=== PATIENT | female | born 1970 | race Caucasian/White ===

== ENCOUNTER 2019-12-03 15:30 | Outpatient (RCR) | payer MEDICARE, MEDICAID, SELFPAY ==
[2019-12-03 15:49] LABS: Basophils Absolute Auto 0.1 K/mm3 (0.0-0.1); Basophils Percent Auto 0.8 % (0.2-1.2); Eosinophils Absolute Auto 0.3 K/mm3 (0-0.3); Hematocrit 43.9 % (37.0-47.0); Hemoglobin 14.3 g/dL (12.0-15.0); Immature Granulocyte Absolute 0.03 K/mm3 (0.00-0.031); Immature Granulocyte Percent A 0.3 % (0-0.5); Lymphocytes Absolute Auto 3.02 K/mm3 (0.9-3.2); Lymphocytes Percent Auto 34.9 % (18.3-44.2); Mean Corpuscular HGB Conc 32.6 g/dl (32-36); Mean Corpuscular Hemoglobin 27.3 pg (26-34); Mean Corpuscular Volume 83.9 fl (80-100); Mean Platelet Volume 10.9 fl (7.4-10.4); Monocytes Absolute Auto 0.8 K/mm3 (0.1-0.6); Neutrophils Absolute Auto 4.5 K/mm3 (1.3-6.7); Platelet Count Result 278 k/mm3 (150-375); Red Blood Count 5.23 M/mm3 (4.2-5.4); Red Cell Distribution Width 14.6 % (11.5-14.5); White Blood Count 8.7 K/mm3 (4.5-10.0)
[2019-12-03 16:49] LABS: Alanine Aminotransferase 30 U/L (4-35); Albumin Level 4.4 g/dL (3.5-5.1); Alkaline Phosphatase 142 U/L (38-126); Aspartate Amino Transferase 35 U/L (14-36); Bilirubin,Total 0.4 mg/dL (0.2-1.3); Blood Urea Nitrogen 13 mg/dL (7-17); Calcium 10.1 mg/dL (8.4-10.2); Carbon Dioxide 29 mmol/L (22-30); Chloride 97 mmol/L (98-107); Cholesterol 163 mg/dL (0-200); Estimated Glomerular Filt Rate > 60; Glucose 96 mg/dL (65-105); HDL Direct 53 mg/dL; Hemoglobin A1C 6.3 % (<5.7); Potassium 4.3 mmol/L (3.4-5.0); Sodium 140 mmol/L (137-145); Triglycerides 156 mg/dL (<150)
[2019-12-03 17:00] LABS: LDL Cholesterol Direct 76 mg/dL
[2019-12-03 17:01] LABS: Add Urine Microscopic? YES; Appearance Urine Clear (Clear); Bacteria Urine Trace /hpf; Bilirubin Urine Negative (Negative); Blood Urine 1+ (Negative); Color Urine Straw (Yellow); Glucose Urine UA Negative (Negative); Ketones Urine Negative (Negative); Leukocyte Esterase Ur Negative LEU/UL (Negative); Nitrate Urine Negative (Negative); Protein Urine Negative (Negative); RBC Urine 0-2 /hpf (0-2); Squamous Epithelial Cell Urine Many /hpf (Few); Urobilinogen Urine Negative mg/dL (<2.0); WBC Urine 0-3 /hpf
[2019-12-03 17:03] LABS: Creatinine Urine 18.3 mg/dL; Specific Grav Ur 1.004 (1.001-1.035)
[2019-12-03 17:40] LABS: Microalbumin Urine Random < 6.0 mg/L (0-16.7)
== END 2020-03-02 23:59 | disposition home or self-care (01) ==
LOC: ANHLAB 15:30
PROVIDERS: PCP Internal Medicine; Referring Provider Nurse Practitioner; Visit Provider Internal Medicine
DX: E11.9 Type 2 diabetes mellitus without complications (principal); Z79.899 Other long term (current) drug therapy
CPT/HCPCS: 36415; 80053; 80061; 81001; 82043; 83036; 85025

== ENCOUNTER 2020-07-06 15:14 | Outpatient (CLI) | payer MEDICARE, MEDICAID, SELFPAY ==
[2020-07-06 15:47] LABS: Hematocrit 42.5 % (37.0-47.0); Hemoglobin 13.6 g/dL (12.0-15.0); Mean Corpuscular Hemoglobin 27.6 pg (26-34); Mean Corpuscular Volume 86.4 fl (80-100); Mean Platelet Volume 10.7 fl (7.4-10.4); Platelet Count Result 256 k/mm3 (150-375); Red Blood Count 4.92 M/mm3 (4.2-5.4); Red Cell Distribution Width 14.5 % (11.5-14.5)
[2020-07-06 16:52] LABS: Add Urine Microscopic? YES; Appearance Urine Clear (Clear); Bilirubin Urine Negative (Negative); Blood Urine 1+ (Negative); Color Urine Yellow (Yellow); Glucose Urine UA Negative (Negative); Ketones Urine Negative (Negative); Leukocyte Esterase Ur Negative LEU/UL (Negative); Mucus Urine Rare /lpf; Nitrate Urine Negative (Negative); Protein Urine Negative (Negative); Specific Grav Ur 1.013 (1.001-1.035); Squamous Epithelial Cell Urine Many /hpf (Few); Urobilinogen Urine Negative mg/dL (<2.0); WBC Urine 0-3 /hpf
[2020-07-06 16:52] LABS: Erythrocyte Sedimentation Rate 60 mm/hr (0-20)
[2020-07-06 17:03] LABS: Hemoglobin A1C 5.9 % (<5.7)
[2020-07-06 17:40] LABS: Alanine Aminotransferase 34 U/L (4-35); Albumin Level 4.1 g/dL (3.5-5.1); Alkaline Phosphatase 114 U/L (38-126); Anion Gap 5 mmol/L (8-16); Aspartate Amino Transferase 32 U/L (14-36); Bilirubin,Total 0.4 mg/dL (0.2-1.3); Blood Urea Nitrogen 13 mg/dL (7-17); CRP 0.9 mg/dL (<1.0); Calcium 9.4 mg/dL (8.4-10.2); Carbon Dioxide 29 mmol/L (22-30); Chloride 104 mmol/L (98-107); Estimated Glomerular Filt Rate > 60; Glucose 114 mg/dL (65-105); Potassium 4.4 mmol/L (3.4-5.0); Sodium 138 mmol/L (137-145)
== END 2020-07-06 15:15 | disposition home or self-care (01) ==
PROVIDERS: Nurse Practitioner; PCP Internal Medicine; Visit Provider Internal Medicine
DX: M19.90 Unspecified osteoarthritis, unspecified site (principal); R76.8 Other specified abnormal immunological findings in serum; Z79.899 Other long term (current) drug therapy; E11.9 Type 2 diabetes mellitus without complications
CPT/HCPCS: 36415; 80053; 81001; 83036; 85027; 85652; 86140

== ENCOUNTER 2020-09-11 19:25 | Emergency (ER) | payer MEDICARE, MEDICAID, SELFPAY ==
--- NOTE | ~2020-09-11 | CT_ITS ---
EXAMINATION: CT abdomen pelvis wo con DATE: 09/11/2020 20:03 INDICATION: Right flank pain. TECHNIQUE: Computed tomography (CT) of the abdomen and pelvis was performed without intravenous contr ast. Automated exposure control and iterative reconstruction technique were employed. The dose-length product was 1408.27 mGy-cm. COMPARISON: CT abdomen and pelvis 09/18/2016 FINDINGS: The visualized portions of the lung bases demonstrate mild atelectasis. There is mosaic att enuation in the lungs, likely small airways disease. No pleural effusion. The heart size is normal. N o pericardial effusion. There is diffuse hepatic steatosis. The gallbladder, spleen, pancreas, adrena l glands, and kidneys are normal. No urolithiasis. There are no dilated loops of bowel. The appendix is normal. There are no pathologically enlarged lymph nodes. There is no free intraperitoneal fluid. There is moderate lumbar spondylosis. IMPRESSION: 1. Diffuse hepatic steatosis. Reviewed, dictated and finalized at location A. WELLNESS
[2020-09-11 19:30] VITALS: BP 143/108; PULSE 102; RESP 14; TEMP 36.3; O2SAT 97
[2020-09-11] MEDS: ONDANSETRON INJ 4 MG/2 ML VIAL IV PUSH (20:15)
[2020-09-11] MEDS: SODIUM CHLORIDE 0.9% IV 1,000 ML 999 ML IV CONT (20:15)
[2020-09-11] MEDS: KETOROLAC 15 MG/ML VIAL (*BKC) IV PUSH (20:18)
[2020-09-11 20:25] LABS: Basophils Absolute Auto 0.1 K/mm3 (0.0-0.1); Basophils Percent Auto 0.7 % (0.2-1.2); Eosinophils Absolute Auto 0.2 K/mm3 (0-0.3); Hematocrit 43.7 % (37.0-47.0); Immature Granulocyte Absolute 0.06 K/mm3 (0.00-0.031); Immature Granulocyte Percent A 0.6 % (0-0.5); Lymphocytes Absolute Auto 2.97 K/mm3 (0.9-3.2); Lymphocytes Percent Auto 30.7 % (18.3-44.2); Mean Corpuscular Hemoglobin 28.5 pg (26-34); Mean Corpuscular Volume 88.8 fl (80-100); Mean Platelet Volume 11.1 fl (7.4-10.4); Monocytes Absolute Auto 0.9 K/mm3 (0.1-0.6); Monocytes Percent Auto 9.3 % (2.6-8.5); Neutrophils Absolute Auto 5.5 K/mm3 (1.3-6.7); Neutrophils Percent Auto 56.7 % (45.5-73.1); Platelet Count Result 266 k/mm3 (150-375); Red Blood Count 4.92 M/mm3 (4.2-5.4); Red Cell Distribution Width 14.4 % (11.5-14.5); White Blood Count 9.7 K/mm3 (4.5-10.0)
--- NOTE | 2020-09-11 20:29 | ED.BACK ---
HPI - Back Pain/Injury General Chief Complaint: Back Pain/Injury Stated Complaint: right flank pain Time Seen by Provider: 09/11/20 19:38 History of Present Illness HPI Narrative: Patient is a 50-year-old female that presents emerge department with chief complaint of right-sided flank pain. Patient denies nausea vomiting diarrhea fever lower abdominal pain. Patient denies trauma. Patient reports symptoms are worse with inspiration and improved with rest Related Data Home Medications Medication Instructions Recorded Confirmed albuterol sulfate 90 mcg/actuation 2 puff INHALATION Q4-6H PRN gm 08/31/19 08/05/20 aerosol inhaler fluticasone furoate 100 1 inhalation INHALATION DAILY 08/31/19 08/05/20 mcg-vilanterol 25 mcg/dose inhalation powder hydroxyzine HCl 25 mg tablet 25 mg PO BID PRN 08/31/19 08/05/20 Allergies Allergy/AdvReac Type Severity Reaction Status Date / Time No Known Allergies Allergy Unknown Verified 09/11/20 19:47 Review of Systems Review of Systems: Narrative: CONSTITUTIONAL: Denies fever, chills, or sweats. EYES: Denies visual changes, redness, or discharge. ENT: Denies rhinorrhea, congestion, sore throat, or otalgia. CARDIOVASCULAR: Denies chest pain, palpitations, or edema. RESPIRATORY: Denies cough or dyspnea. GASTROINTESTINAL: Denies abdominal pain, nausea, vomiting, or diarrhea. GENITOURINARY: Denies dysuria or hematuria. SKIN: Denies rash or itching. MUSCULOSKELETAL: Denies back pain, joint pain, or myalgia. NEUROLOGIC: Denies headache, numbness, or weakness. PSYCHIATRIC: Denies anxiety or depression. A 10 system review of systems was completed on the patient and is negative except for what is stated in the HPI. Nursing and ancillary documentation was reviewed. [facility] Past Medical History Medical History (Updated 09/11/20 @ 22:23 by Jr Bird MD) Alcoholism ALEXANDREA positive (~2018) Anxiety Asthma Broken foot Top of left foot 2019 Chronic fatigue Constipation Depression Endometriosis Fainting spell Fainting/Falls Generalized osteoarthritis of multiple sites Heart disease Hyperlipidemia Kidney disease Liver disease Low BP Lung disease Migraine Type 2 diabetes mellitus Surgical History Surgical History H/O section 1989 H/O foot surgery Plates and screws in left foot 2018 H/O right heart catheterization 2013 H/O tympanostomy 2005 History of tonsillectomy Family History Family History Mother Family history of cardiovascular disease Heart disease Father Back problem Other Diabetes mellitus Hypertension Social History Social History Smoking packs per day: 1 Smoking cigarettes per day: 20.0 Smoking status: Current every day smoker Tobacco type: cigarettes Alcohol intake: never Substance use: never Gender identity (if verbalized by the patient): Female Exam Narrative: Exam Narrative: GENERAL: Well-appearing, well-nourished, and in no acute distress. HEAD: Normocephalic, atraumatic. EYES: PERRLA and EOMI. ENT: Nares clear, no rhinorrhea or epistaxis. Mucous membranes moist. NECK: Supple. CHEST: Clear to auscultation. No respiratory distress. HEART: Regular rate and rhythm. No murmur heard. Normal peripheral pulses. ABDOMEN: Soft, nontender, nondistended, normal active bowel sounds. EXTREMITIES: Normal range of motion. No edema. SKIN: Warm, dry, no rash. NEURO: No focal deficits. Alert and oriented x3. PSYCH: Normal mood and affect. Course Course Emergency Course: CT scan of the abdomen pelvis showed no evidence of acute intra-abdominal pathology. Vital Signs Vital signs: Vital Signs Temperature 36.3 C L 09/11/20 19:30 Pulse Rate 102 H 09/11/20 19:30 Respiratory Rate 14 09/11/20 19:30 Blood Pressu
[2020-09-11 20:36] LABS: Lipase 95 U/L (23-300)
[2020-09-11 20:37] LABS: Alanine Aminotransferase 34 U/L (4-35); Albumin Level 4.3 g/dL (3.5-5.1); Alkaline Phosphatase 124 U/L (38-126); Anion Gap 10 mmol/L (8-16); Aspartate Amino Transferase 36 U/L (14-36); Bilirubin,Total 0.3 mg/dL (0.2-1.3); Blood Urea Nitrogen 13 mg/dL (7-17); Calcium 9.3 mg/dL (8.4-10.2); Carbon Dioxide 31 mmol/L (22-30); Chloride 99 mmol/L (98-107); Estimated CRCL calculation 91 ml/min; Estimated Glomerular Filt Rate > 60; Glucose 99 mg/dL (65-105); Sodium 140 mmol/L (137-145)
--- NOTE | 2020-09-11 21:11 | PC.NURSE ---
asked pt for a second time to try to provide a urine sample. pt states she cannot at this time.
[2020-09-11 21:51] LABS: Add Urine Microscopic? YES; Appearance Urine Cloudy (Clear); Bacteria Urine Trace /hpf; Bilirubin Urine Negative (Negative); Blood Urine Negative (Negative); Color Urine Yellow (Yellow); Glucose Urine UA Negative (Negative); Ketones Urine Negative (Negative); Leukocyte Esterase Ur Negative LEU/UL (Negative); Mucus Urine Few /lpf; Nitrate Urine Negative (Negative); Protein Urine 1+ mg/dL (Negative); Specific Grav Ur 1.016 (1.001-1.035); Squamous Epithelial Cell Urine Many /hpf (Few); Urobilinogen Urine Negative mg/dL (<2.0); WBC Urine 0-3 /hpf
[2020-09-11] MEDS: HYDROcodone/acetaminophen (*CRX) 5-325 MG TABLET 2 TAB PO (22:01)
[2020-09-11 22:30] VITALS: BP 107/71; PULSE 75; RESP 17; O2SAT 97
== END 2020-09-11 22:37 | disposition home or self-care (01) ==
PROVIDERS: Emergency Provider Emergency Medicine; PCP Internal Medicine
DX: R10.9 Unspecified abdominal pain (principal); J45.909 Unspecified asthma, uncomplicated; N80.9 Endometriosis, unspecified; E11.9 Type 2 diabetes mellitus without complications; M19.90 Unspecified osteoarthritis, unspecified site; E78.5 Hyperlipidemia, unspecified; I51.9 Heart disease, unspecified; N28.9 Disorder of kidney and ureter, unspecified; K76.9 Liver disease, unspecified; F17.210 Nicotine dependence, cigarettes, uncomplicated; Z79.84 Long term (current) use of oral hypoglycemic drugs
CPT/HCPCS: 36415; 74176; 80053; 81001; 83690; 85025; 96361; 96374; 96375; 99284; A9270; J1885; J2405; J7030

== ENCOUNTER 2020-10-20 16:33 | Outpatient (CLI) | payer MEDICARE, SELFPAY ==
[2020-10-20 17:14] LABS: Hematocrit 44.4 % (37.0-47.0); Hemoglobin 14.6 g/dL (12.0-15.0); Mean Corpuscular HGB Conc 32.9 g/dl (32-36); Mean Corpuscular Hemoglobin 28.9 pg (26-34); Mean Corpuscular Volume 87.7 fl (80-100); Mean Platelet Volume 10.8 fl (7.4-10.4); Platelet Count Result 256 k/mm3 (150-375); Red Blood Count 5.06 M/mm3 (4.2-5.4); Red Cell Distribution Width 14.4 % (11.5-14.5); White Blood Count 9.9 K/mm3 (4.5-10.0)
[2020-10-20 17:18] LABS: Add Urine Microscopic? YES; Appearance Urine Clear (Clear); Bacteria Urine Trace /hpf; Bilirubin Urine Negative (Negative); Blood Urine 1+ (Negative); Color Urine Straw (Yellow); Glucose Urine UA Negative (Negative); Ketones Urine Negative (Negative); Leukocyte Esterase Ur Negative LEU/UL (Negative); Nitrate Urine Negative (Negative); Protein Urine Negative (Negative); RBC Urine 0-2 /hpf (0-2); Specific Grav Ur 1.005 (1.001-1.035); Squamous Epithelial Cell Urine Moderate /hpf (Few); Urobilinogen Urine Negative mg/dL (<2.0); WBC Urine 0-3 /hpf
[2020-10-20 17:30] LABS: Alanine Aminotransferase 33 U/L (4-35); Albumin Level 4.3 g/dL (3.5-5.1); Alkaline Phosphatase 112 U/L (38-126); Anion Gap 7 mmol/L (8-16); Aspartate Amino Transferase 35 U/L (14-36); Bilirubin,Total 0.4 mg/dL (0.2-1.3); Blood Urea Nitrogen 12 mg/dL (7-17); CRP 1.6 mg/dL (<1.0); Calcium 9.6 mg/dL (8.4-10.2); Carbon Dioxide 30 mmol/L (22-30); Chloride 102 mmol/L (98-107); Estimated Glomerular Filt Rate > 60; Glucose 103 mg/dL (65-105); Sodium 139 mmol/L (137-145)
[2020-10-20 17:46] LABS: Erythrocyte Sedimentation Rate 20 mm/hr (0-20)
== END 2020-10-20 16:34 | disposition home or self-care (01) ==
PROVIDERS: Internal Medicine; PCP Internal Medicine; Visit Provider Internal Medicine
DX: R76.8 Other specified abnormal immunological findings in serum (principal); M19.90 Unspecified osteoarthritis, unspecified site; E11.9 Type 2 diabetes mellitus without complications
CPT/HCPCS: 36415; 80053; 81001; 85027; 85652; 86140

== ENCOUNTER 2020-12-21 11:43 | Outpatient (CLI) | payer MEDICARE, SELFPAY ==
--- NOTE | ~2020-12-21 | XR_ITS ---
EXAMINATION: XR chest 2V DATE: 12/21/2020 12:14 INDICATION: Cough and shortness of breath TECHNIQUE: PA and lateral views of the chest are obtained. COMPARISON: 12/30/2013 FINDINGS: There are diffuse opacities throughout all lung zones, worse in the mid and lower lung zone s. There is no pleural effusion or pneumothorax. The cardiomediastinal silhouette is normal. There is mild thoracic spondylosis. IMPRESSION: 1. Diffuse lung disease, worst in the mid and lower lung zones, with an appearance typical of COVID 1 9 pneumonia. Differential also includes other atypical pneumonia and pulmonary edema. Reviewed, dictated and finalized at location A. ING CONTRACTOR IMPRESSION: 1. Diffuse lung disease, worst in the mid and lower lung zones, with an appeara nce typical of COVID 19 pneumonia. Differential also includes other atypical pn eumonia and pulmonary edema.
== END 2020-12-21 11:44 | disposition home or self-care (01) ==
PROVIDERS: PCP Internal Medicine; Visit Provider Clinical Nurse Specialist
DX: R05 Cough (principal); J98.4 Other disorders of lung
CPT/HCPCS: 71046

== ENCOUNTER → 2020-12-22 06:59 | Outpatient (CLI) | payer MEDICARE, SELFPAY ==
[2020-12-23 18:59] LABS: SARS-CoV-2 RNA PCR Negative
== END ==
PROVIDERS: PCP Internal Medicine; Visit Provider Clinical Nurse Specialist
DX: U07.1 COVID-19 (principal); J12.82 Pneumonia due to coronavirus disease 2019
CPT/HCPCS: C9803; U0003; U0005

== ENCOUNTER 2021-01-24 14:51 | Outpatient (CLI) | payer MEDICARE, MEDICAID, SELFPAY ==
[2021-01-24 16:34] LABS: Hemoglobin A1C 6.1 % (<5.7)
== END 2021-01-24 14:52 | disposition home or self-care (01) ==
LOC: ANHLAB 14:52
PROVIDERS: PCP Internal Medicine; Visit Provider Clinical Nurse Specialist
DX: E11.9 Type 2 diabetes mellitus without complications (principal)
CPT/HCPCS: 36415; 83036

== ENCOUNTER 2021-07-31 14:52 | Outpatient (CLI) | payer MEDICARE, SELFPAY ==
[2021-07-31 15:36] LABS: Hemoglobin A1C 6.5 % (<5.7)
[2021-07-31 15:39] LABS: Anion Gap 9 mmol/L (8-16); Blood Urea Nitrogen 15 mg/dL (7-17); Calcium 9.6 mg/dL (8.4-10.2); Carbon Dioxide 28 mmol/L (22-30); Chloride 103 mmol/L (98-107); Estimated Glomerular Filt Rate > 60; Glucose 136 mg/dL (65-110); Potassium 4.4 mmol/L (3.4-5.0); Sodium 140 mmol/L (137-145)
== END 2021-07-31 14:53 | disposition home or self-care (01) ==
LOC: ANHLAB 14:55
PROVIDERS: PCP Internal Medicine; Visit Provider Clinical Nurse Specialist
DX: E11.9 Type 2 diabetes mellitus without complications (principal)
CPT/HCPCS: 36415; 80048; 83036

== ENCOUNTER 2021-11-03 01:48 | Day surgery (SDC) | payer MEDICARE, SELFPAY ==
[2021-10-20 16:01] VITALS: BMI 56.0
--- NOTE | 2021-11-02 14:07 | WPDANESEPPF ---
Anes - Initial Pre Proc Eval Procedure: Operation Date: 11/03/21 11:00 Proposed Procedures p Screening Colonoscopy - Jay Moreno MD Date/Time: 11/02/21 14:07 Surgeon: Jay Moreno MD Pre Op Diagnosis: neoplasm screening Patient Data Age: 51 Gender: F Height: 1.52 m Weight: 130 kg Allergies Allergy/AdvReac Type Severity Reaction Status Date / Time No Known Allergies Allergy Unknown Verified 11/03/21 10:14 Home Medications Medication Instructions Recorded Confirmed Type albuterol sulfate 90 mcg/actuation 2 puff INHALATION Q4-6H PRN gm 08/31/19 10/20/21 History aerosol inhaler hydroxyzine HCl 25 mg tablet 25 mg PO BID PRN 08/31/19 10/20/21 History OneTouch Ultra Blue Test Strip #100 each NS 03/08/20 08/03/21 Rx famotidine 20 mg tablet 20 mg PO BID #360 tablet 11/14/20 10/20/21 Rx diclofenac sodium 75 mg 75 mg PO BID #180 tablet 07/21/21 10/20/21 Rx tablet,delayed release hydroxychloroquine 200 mg tablet See Rx Instructions .ROUTE 07/21/21 10/20/21 Rx .COMPLEX #180 tablet bupropion HCl 300 mg 24 hr tablet, 300 mg PO QAM #90 tablet 07/31/21 10/20/21 Rx extended release lovastatin 40 mg tablet 40 mg PO DAILY #90 tablet 08/02/21 10/20/21 Rx montelukast 10 mg tablet 10 mg PO DAILY #90 tablet 08/02/21 10/20/21 Rx amitriptyline 100 mg tablet 200 mg PO DAILY #180 tablet 08/30/21 10/20/21 Rx aspirin 81 mg PO DAILY 10/20/21 10/20/21 History mcqkdnjligd-fbucxqika-wptiesls 1 inh INHALATION DAILY 10/20/21 10/20/21 History [Trelegy Ellipta] linaclotide 290 mcg capsule 290 mcg PO DAILY #90 cap 10/26/21 Rx Patient hx anesthesia problems: none Family hx anesthesia problems: none Results Review: All pre-operative results and documents have been reviewed as part of the pre-operative evaluation. [facility] Past Medical History Medical History (Updated 08/04/21 @ 11:10 by SATURNINO Mcginnis) Acute foot pain Alcoholism ALEXANDREA positive (~2018) Anxiety Asthma Broken foot Top of left foot 2019 Chronic fatigue Constipation Depression Endometriosis Fainting spell Fainting/Falls Generalized osteoarthritis of multiple sites Heart disease Hyperlipidemia Kidney disease Liver disease Low BP Lung disease Migraine Type 2 diabetes mellitus Surgical History Surgical History (Reviewed 08/03/21 @ 14:24 by Abi Fairchild [facility]) H/O section 1989 H/O foot surgery Plates and screws in left foot 2018 H/O right heart catheterization 2013 H/O tympanostomy 2005 History of tonsillectomy Family History Family History (Reviewed 08/03/21 @ 14:24 by Abi Fairchild [facility]) Mother Family history of cardiovascular disease Heart disease Father Back problem Other Diabetes mellitus Hypertension Social History Social History (Reviewed 08/03/21 @ 14:24 by Abi Fairchild [facility]) Smoking packs per day: 1 Smoking cigarettes per day: 20.0 Years smoked: 30 Smoking pack-years: 30.00 Smoking status: Current every day smoker Tobacco type: cigarettes Alcohol intake: never Substance use: never Living arrangements: with family Gender identity (if verbalized by the patient): Female Spiritual care concerns: No Anes - Eval Final PreProcedure Day of Procedure 11/02/21 14:07 Patient weight: super morbidly obese Heart: regular rate and rhythm Lungs: clear to auscultation and normal air movement Airway: Mallampati scale class II Neurological: alert and oriented Last oral intake: >/= 8 hours ASA classification: III Emergent: no Anesthetic plan: proceed Anesthesia type and monitoring: general GIVS and standard monitoring Results Review: All pre-operative results and documents have been reviewed as part of the pre-operative evaluation. Informed Consent: The patient's anesthetic plan and its attendant risks and benefits were discussed with the patient/family/POA. Questions were solicited and answers provided to the satisfaction of th
[2021-11-03 10:15] VITALS: BP 139/91; PULSE 90; RESP 24; TEMP 35.9; O2SAT 94; BMI 56.0
[2021-11-03] MEDS: LACTATED RINGERS 1,000 ML 150 ML IV CONT (10:18)
--- NOTE | 2021-11-03 10:43 | PM.HPGS ---
History of Present Illness History of Present Illness Consent: Risks, benefits, and alternatives have been discussed and questions answered. Patient agrees to proceed with procedure. Chief complaint: neoplasm screening Narrative: Mer Davila is a 51 year old female here for first screening colonoscopy Review of Systems Constitutional: Constitutional: Denies headache(s) and Denies weakness Eyes: Eyes: Denies blurry vision ENT: Reports Normal hearing present, Denies headache(s) and Denies neck pain Cardiovascular: Cardiovascular: Denies chest pain and Denies dyspnea Respiratory: Respiratory: Denies dyspnea Gastrointestinal: Gastrointestinal: Reports no additional gastrointestinal complaints Genitourinary: Genitourinary: Denies dysuria Musculoskeletal: Musculoskeletal: Denies neck pain Integumentary/Breasts: Skin/Breast: Denies dry skin Neurologic: Reports Normal hearing present, Denies headache(s) and Denies weakness Psychiatric: Psychiatric: Denies anxiety Endocrine: Endocrine: Denies change in body appearance Hematologic/Lymphatic: Hematologic/Lymphatic: Denies easy bleeding Allergic/Immunologic: Allergic/Immunologic: Denies urticaria PMF Past Medical History Medical History (Updated 08/04/21 @ 11:10 by ALEXANDER Mcginnis-C) Acute foot pain Alcoholism ALEXANDREA positive (~2018) Anxiety Asthma Broken foot Top of left foot 2019 Chronic fatigue Constipation Depression Endometriosis Fainting spell Fainting/Falls Generalized osteoarthritis of multiple sites Heart disease Hyperlipidemia Kidney disease Liver disease Low BP Lung disease Migraine Type 2 diabetes mellitus Surgical History Surgical History H/O section 1989 H/O foot surgery Plates and screws in left foot 2018 H/O right heart catheterization 2013 H/O tympanostomy 2005 History of tonsillectomy Family History Family History Mother Family history of cardiovascular disease Heart disease Father Back problem Other Diabetes mellitus Hypertension Social History Social History Smoking packs per day: 1 Smoking cigarettes per day: 20.0 Years smoked: 30 Smoking pack-years: 30.00 Smoking status: Current every day smoker Tobacco type: cigarettes Alcohol intake: never Substance use: never Living arrangements: with family Gender identity (if verbalized by the patient): Female Spiritual care concerns: No Meds Home Medications and Allergies Home Medications Medication Instructions Recorded Confirmed Type albuterol sulfate 90 mcg/actuation 2 puff INHALATION Q4-6H PRN gm 08/31/19 11/03/21 History aerosol inhaler hydroxyzine HCl 25 mg tablet 25 mg PO BID PRN 08/31/19 11/03/21 History OneTouch Ultra Blue Test Strip #100 each NS 03/08/20 11/03/21 Rx famotidine 20 mg tablet 20 mg PO BID #360 tablet 11/14/20 11/03/21 Rx diclofenac sodium 75 mg 75 mg PO BID #180 tablet 07/21/21 11/03/21 Rx tablet,delayed release hydroxychloroquine 200 mg tablet See Rx Instructions .ROUTE 07/21/21 11/03/21 Rx .COMPLEX #180 tablet bupropion HCl 300 mg 24 hr tablet, 300 mg PO QAM #90 tablet 07/31/21 11/03/21 Rx extended release lovastatin 40 mg tablet 40 mg PO DAILY #90 tablet 08/02/21 11/03/21 Rx montelukast 10 mg tablet 10 mg PO DAILY #90 tablet 08/02/21 11/03/21 Rx amitriptyline 100 mg tablet 200 mg PO DAILY #180 tablet 08/30/21 11/03/21 Rx aspirin 81 mg PO DAILY 10/20/21 11/03/21 History euyibwlwvml-onfymjufy-iywbttmp 1 inh INHALATION DAILY 10/20/21 11/03/21 History [Trelegy Ellipta] linaclotide 290 mcg capsule 290 mcg PO DAILY #90 cap 10/26/21 11/03/21 Rx Allergies Allergy/AdvReac Type Severity Reaction Status Date / Time No Known Allergies Allergy Unknown Verified 11/03/21 10:14 Vital Signs Vital Signs
[2021-11-03 11:21] VITALS: BP 129/71; PULSE 78; RESP 20; O2SAT 95
--- NOTE | 2021-11-03 11:21 | SUR.OPER ---
RN updated family
[2021-11-03 11:31] VITALS: BP 122/67; PULSE 84; RESP 25; O2SAT 99
[2021-11-03 11:41] VITALS: BP 130/66; PULSE 77; RESP 21; O2SAT 96
== END 2021-11-03 11:52 | disposition home or self-care (01) ==
PROVIDERS: PCP Internal Medicine; Visit Provider Internal Medicine Gastroenterology
PROC: 0DJD8ZZ Inspection of Lower Intestinal Tract, Via Natural or Artificial Opening Endoscopic (ICD-10-PCS; CPT 45378; principal; 2021-11-03 11:00)
DX: Z12.11 Encounter for screening for malignant neoplasm of colon (principal); K64.8 Other hemorrhoids; E78.5 Hyperlipidemia, unspecified; E11.9 Type 2 diabetes mellitus without complications; K76.9 Liver disease, unspecified; N28.9 Disorder of kidney and ureter, unspecified; J45.909 Unspecified asthma, uncomplicated; F41.8 Other specified anxiety disorders; R76.0 Raised antibody titer; I51.9 Heart disease, unspecified; J98.4 Other disorders of lung; F17.210 Nicotine dependence, cigarettes, uncomplicated; Z79.51 Long term (current) use of inhaled steroids; Z79.82 Long term (current) use of aspirin
CPT/HCPCS: G0121; J2704; J7120

== ENCOUNTER 2021-12-01 14:17 | Outpatient (CLI) | payer MEDICARE, SELFPAY ==
[2021-12-01 15:58] LABS: Basophils Absolute Auto 0.1 K/mm3 (0.0-0.1); Basophils Percent Auto 0.8 % (0.2-1.2); Eosinophils Absolute Auto 0.2 K/mm3 (0-0.3); Eosinophils Percent Auto 2.3 % (0-4.4); Hematocrit 45.4 % (37.0-47.0); Immature Granulocyte Absolute 0.07 K/mm3 (0.00-0.031); Immature Granulocyte Percent A 0.7 % (0-0.5); Lymphocytes Absolute Auto 2.86 K/mm3 (0.9-3.2); Lymphocytes Percent Auto 30.4 % (18.3-44.2); Mean Corpuscular HGB Conc 30.8 g/dl (32-36); Mean Corpuscular Hemoglobin 27.9 pg (26-34); Mean Corpuscular Volume 90.4 fl (80-100); Monocytes Absolute Auto 0.8 K/mm3 (0.1-0.6); Monocytes Percent Auto 8.4 % (2.6-8.5); Neutrophils Absolute Auto 5.4 K/mm3 (1.3-6.7); Neutrophils Percent Auto 57.4 % (45.5-73.1); Platelet Count Result 285 k/mm3 (150-375); Red Blood Count 5.02 M/mm3 (4.2-5.4); Red Cell Distribution Width 14.4 % (11.5-14.5); White Blood Count 9.4 K/mm3 (4.5-10.0)
[2021-12-01 16:16] LABS: Add Urine Microscopic? NO; Appearance Urine Clear (Clear); Bilirubin Urine Negative (Negative); Blood Urine Negative (Negative); Color Urine Straw (Yellow); Glucose Urine UA Negative (Negative); Ketones Urine Negative (Negative); Leukocyte Esterase Ur Negative LEU/UL (Negative); Nitrate Urine Negative (Negative); Protein Urine Negative (Negative); Specific Grav Ur 1.008 (1.001-1.035); Urobilinogen Urine Negative mg/dL (<2.0)
[2021-12-01 16:22] LABS: Alanine Aminotransferase 24 U/L (4-35); Albumin Level 4.5 g/dL (3.5-5.1); Alkaline Phosphatase 129 U/L (38-126); Anion Gap 7 mmol/L (8-16); Aspartate Amino Transferase 37 U/L (14-36); Bilirubin,Total 0.3 mg/dL (0.2-1.3); Blood Urea Nitrogen 15 mg/dL (7-17); CRP 0.8 mg/dL (<1.0); Calcium 9.7 mg/dL (8.4-10.2); Carbon Dioxide 30 mmol/L (22-30); Chloride 102 mmol/L (98-107); Estimated Glomerular Filt Rate > 60; Glucose 112 mg/dL (65-110); Potassium 4.4 mmol/L (3.4-5.0); Sodium 139 mmol/L (137-145); Uric Acid 7.1 mg/dL (2.5-7.5)
[2021-12-01 16:42] LABS: Hemoglobin A1C 6.7 % (<5.7)
[2021-12-01 17:21] LABS: Creatinine Urine 33.5 mg/dL
[2021-12-01 17:37] LABS: Vitamin D 25 Hydroxy 18.9 ng/mL
[2021-12-01 19:12] LABS: Erythrocyte Sedimentation Rate 11 mm/hr (0-20)
[2021-12-01 19:22] LABS: Microalbumin Urine Random < 6.0 mg/L (0-16.7)
== END 2021-12-01 14:18 | disposition home or self-care (01) ==
PROVIDERS: Clinical Nurse Specialist; PCP Internal Medicine; Visit Provider Internal Medicine
DX: R76.8 Other specified abnormal immunological findings in serum (principal); M19.90 Unspecified osteoarthritis, unspecified site; M79.673 Pain in unspecified foot; E11.9 Type 2 diabetes mellitus without complications; E55.9 Vitamin D deficiency, unspecified
CPT/HCPCS: 36415; 80053; 81003; 82043; 82306; 83036; 84550; 85025; 85652; 86140

== ENCOUNTER 2022-07-10 11:08 | Outpatient (CLI) | payer MEDICARE, SELFPAY ==
[2022-07-10 16:48] LABS: Hemoglobin A1C 6.7 % (<5.7)
[2022-07-10 17:05] LABS: Creatinine Urine 61.7 mg/dL
[2022-07-10 19:00] LABS: MALB Creatinine Ratio < 9.7 mg/g (0-30); Microalbumin Urine Random < 6.0 mg/L (0-16.7)
== END 2022-07-10 11:09 | disposition home or self-care (01) ==
LOC: ANHLAB 11:09
PROVIDERS: PCP Internal Medicine; Visit Provider Nurse Practitioner
DX: E11.9 Type 2 diabetes mellitus without complications (principal)
CPT/HCPCS: 36415; 82043; 83036

== ENCOUNTER 2022-09-10 07:59 | Outpatient (CLI) | payer MEDICARE, MEDICAID, SELFPAY ==
--- NOTE | 2022-09-29 17:00 | WPDHOMESLEEP ---
Sleep Study - Home Unattended Date of Study: 09/10/22 Ordering Provider: Chelsea Vilchis NP Interpreting Provider: Eda Archibald, DO Home Sleep Study Type: Apnea Link Air Height: 1.52 m Weight: 124.738 kg Body Mass Index: 53.6 Neck Circumference (inches): 16 [place]: 15 Reason for Sleep Study Snoring, daytime hypersomnia Sleep History The patient is a 52-year-old female with hypertension, hyperlipidemia, seasonal allergies, arthritis, depression, GERD, weakness asthma and tobacco use that a sleep study ordered by her primary care for evaluation of sleep apnea. The patient occasionally awakens from sleep short of breath. She frequently awakens at night heartburn, belching or cough. She constantly snores loud enough that others complain. She occasionally has trouble sleeping when she has a cold. She rarely wakes up gasping for air throughout the night. She frequently has breathing problems at night observed by herself or others. She frequently sweats excessively at night. She occasionally has heart palpitations or irregular heartbeats during the night. She frequently falls asleep during the day but never while driving. She denies cataplexy. She denies having trouble at school or work due to sleepiness. She occasionally feels unable to move while waking up or falling asleep. She frequently experiences vivid dreamlike scenes upon awakening or falling asleep. She denies feeling afraid of going to sleep. She frequently has nightmares and occasionally remembers her dreams. She occasionally has thoughts racing through her mind. She occasionally feels sad, depressed or anxious. She rarely has muscular tension. She occasionally notices parts of her body jerk. She occasionally kicks during the night. She occasionally has crawling and aching feelings in her legs and occasionally has leg pain during the night. She denies grinding her teeth during sleep and denies awakening with morning jaw pain. She is constantly bothered by pain during the day and frequently awakened by pain during the night. She constantly wakes up feeling stiff in the morning. She constantly wakes up with sore or achy muscles. She constantly wakes up with pain in the neck, spine or joints. She goes to bed at 11:00 p.m. on both weekdays and weekends. It takes her 30-45 minutes to fall asleep. He wakes up 1-2 times throughout the night for unknown reasons. She is able to fall back asleep within 5 minutes. She wakes up at 10:00 a.m. on both weekdays and weekends. She typically gets 8-10 hours of sleep per night. She will stay in bed for 4-5 minutes after waking up in the morning. She currently lives with her son. She does not consume any caffeinated beverages within 2 hours of bedtime. She does not engage in physical exercise before bedtime. She will read watch television before falling asleep. She will take naps in the afternoon or the evening but they are not refreshing. She drinks 5 cups of caffeinated beverage per day. She currently uses tobacco. She denies alcohol recreational drug use. [facility] Past Medical History Medical History Acute foot pain Alcoholism ALEXANDREA positive (~2018) Anxiety Asthma Broken foot Top of left foot 2019 Chronic fatigue Constipation Depression Endometriosis Fainting spell Fainting/Falls Generalized osteoarthritis of multiple sites Heart disease Hyperlipidemia Irritable bowel syndrome with constipation Kidney disease Liver disease Low BP Lung disease Migraine Type 2 diabetes mellitus Undifferentiated connective tissue disease Surgical History Surgical History H/O section 1989 H/O foot surgery Plates and screws in left foot 2018 H/O right heart catheterization 2013 H/O tympanostomy 2005 History of tonsillectomy Family History Family History (Reviewed 09/29/22 @ 17:04
[2022-09-29 17:09] VITALS: BMI 53.6
== END 2022-09-12 12:41 | disposition home or self-care (01) ==
LOC: ANHCSM 08:01
PROVIDERS: PCP Internal Medicine; Visit Provider Nurse Practitioner
DX: G47.33 Obstructive sleep apnea (adult) (pediatric) (principal); I10 Essential (primary) hypertension; E78.5 Hyperlipidemia, unspecified; K21.9 Gastro-esophageal reflux disease without esophagitis; E11.9 Type 2 diabetes mellitus without complications; F17.210 Nicotine dependence, cigarettes, uncomplicated
CPT/HCPCS: 95806

== ENCOUNTER → 2022-12-10 09:46 | Outpatient (CLI) | payer MEDICAID, SELFPAY ==
--- NOTE | ~2022-12-10 | XR_ITS ---
XR chest 2V 12/10/2022 10:03 Indication: Cough, shortness of breath and left-sided chest pain Procedure: 2 view chest Comparison: 12/21/2020 Findings: Borderline heart size with mild interstitial edema. No significant effusion or pneumothorax . No acute osseous abnormality. Impression: 1: Borderline heart size with mild interstitial edema. Reviewed, dictated and finalized at location B. IS CAMP INSTRUCTOR Impression: 1: Borderline heart size with mild interstitial edema.
== END ==
PROVIDERS: PCP Internal Medicine; Visit Provider Clinical Nurse Specialist
DX: R05.9 Cough, unspecified (principal); Z72.0 Tobacco use; R60.9 Edema, unspecified
CPT/HCPCS: 71046

== ENCOUNTER 2022-12-20 08:30 | Outpatient (CLI) | payer MEDICARE, MEDICAID, SELFPAY ==
--- NOTE | ~2022-12-20 | US_ITS ---
Limited Abdominal Sonogram: Real-time sonographic imaging of the right upper quadrant was performed. Clinical History: Fatty liver Findings: The liver appears echogenic, with no evidence of mass lesion or bile duct dilatation. Main portal vein demonstrates normal direction of flow. The gallbladder is well distended, and appears no rmal with no evidence of gallstone or wall thickening. The common bile duct cannot be visualized. Th e visualized pancreas, aorta, and IVC are unremarkable. Impression: Diffuse fatty infiltration of liver. Reviewed, dictated and finalized at location M. T SERVICES MANAGER Impression: Diffuse fatty infiltration of liver.
--- NOTE | ~2022-12-20 | CT_ITS ---
Clinical Indication: Cough CT Scan of the Chest with Contrast: Technique: Contiguous sections were acquired throughout the chest after intravenous administration of 75 cc of Omnipaque 350. Dose reduction technique was used on this scan by utilizing automated exposu re control and iterative reconstruction technique. The dose-length product (DLP) was 1006.52 mGy-cm. Findings: Enlarged prevascular lymph nodes are present, largest measuring 2.6 x 1.[address] ructures appear unremarkable. There is no evidence of pleural or pericardial effusion. There is suspected very mild diffuse groundglass opacity and possible scattered mild interstitial thi ckening. Images through the upper abdomen reveal no abnormalities. Impression: Suggestion of mild diffuse groundglass opacity and scattered mild interstitial thickening. Correlate for chronic interstitial disease or inhalational exposure. Pulmonary edema or atypical infection felt to be less likely, though not excluded. Enlarged prevascular lymph nodes, nonspecific. Reviewed, dictated and finalized at [facility]. WRAPPER Impression: Suggestion of mild diffuse groundglass opacity and scattered mild interstitial thickening. Correlate for chronic interstitial disease or inhalational exposure . Pulmonary edema or atypical infection felt to be less likely, though not excl uded. Enlarged prevascular lymph nodes, nonspecific.
[2022-12-20 08:53] LABS: Estimated Glomerular Filt Rate > 60
== END 2022-12-20 08:31 | disposition home or self-care (01) ==
PROVIDERS: PCP Internal Medicine; Visit Provider Clinical Nurse Specialist
DX: K76.0 Fatty (change of) liver, not elsewhere classified (principal); R05.9 Cough, unspecified; R06.02 Shortness of breath; R59.0 Localized enlarged lymph nodes
CPT/HCPCS: 71260; 76705; Q9967

== ENCOUNTER 2023-02-14 13:27 | Outpatient (CLI) | payer MEDICARE, MEDICAID, SELFPAY ==
[2023-02-14 19:20] LABS: Basophils Absolute Auto 0.1 K/mm3 (0.0-0.1); Basophils Percent Auto 0.8 % (0.2-1.2); Eosinophils Absolute Auto 0.3 K/mm3 (0-0.3); Eosinophils Percent Auto 3.4 % (0-4.4); Hematocrit 43.9 % (37.0-47.0); Hemoglobin 13.3 g/dL (12.0-15.0); Immature Granulocyte Absolute 0.04 K/mm3 (0.00-0.031); Immature Granulocyte Percent A 0.4 % (0-0.5); Lymphocytes Absolute Auto 3.21 K/mm3 (0.9-3.2); Lymphocytes Percent Auto 35.5 % (18.3-44.2); Mean Corpuscular HGB Conc 30.3 g/dl (32-36); Mean Corpuscular Hemoglobin 26.9 pg (26-34); Mean Corpuscular Volume 88.7 fl (80-100); Mean Platelet Volume 11.5 fl (7.4-10.4); Monocytes Absolute Auto 0.8 K/mm3 (0.1-0.6); Neutrophils Absolute Auto 4.6 K/mm3 (1.3-6.7); Neutrophils Percent Auto 50.9 % (45.5-73.1); Platelet Count Result 288 k/mm3 (150-375); Red Blood Count 4.95 M/mm3 (4.2-5.4); Red Cell Distribution Width 15.4 % (11.5-14.5); White Blood Count 9.1 K/mm3 (4.5-10.0)
[2023-02-14 19:43] LABS: Alanine Aminotransferase 22 U/L (6-35); Albumin Level 4.2 g/dL (3.5-5.1); Alkaline Phosphatase 116 U/L (38-126); Anion Gap 4 mmol/L (8-16); Aspartate Amino Transferase 43 U/L (14-36); Bilirubin,Total 0.5 mg/dL (0.2-1.3); Blood Urea Nitrogen 17 mg/dL (7-17); Calcium 9.2 mg/dL (8.4-10.2); Carbon Dioxide 34 mmol/L (22-30); Chloride 102 mmol/L (98-107); Cholesterol 141 mg/dL (0-200); Estimated Glomerular Filt Rate > 60; Glucose 92 mg/dL (65-110); HDL Direct 41 mg/dL; Sodium 140 mmol/L (137-145); Triglycerides 149 mg/dL (<150)
[2023-02-14 19:54] LABS: LDL Cholesterol Direct 61 mg/dL
[2023-02-14 20:37] LABS: Hemoglobin A1C 6.3 % (<5.7)
[2023-02-14 20:57] LABS: Vitamin D 25 Hydroxy 23.8 ng/mL
[2023-02-14 21:19] LABS: MALB Creatinine Ratio < 9.7 mg/g (0-30); Microalbumin Urine Random < 6.0 mg/L (0-16.7)
== END 2023-02-14 13:28 | disposition home or self-care (01) ==
LOC: ANHGOSHLAB 13:28
PROVIDERS: PCP Internal Medicine; Visit Provider Clinical Nurse Specialist
DX: E55.9 Vitamin D deficiency, unspecified (principal); E11.9 Type 2 diabetes mellitus without complications; F41.9 Anxiety disorder, unspecified
CPT/HCPCS: 36415; 80053; 80061; 82043; 82306; 82607; 83036; 84443; 85025

== ENCOUNTER 2023-07-10 08:49 | Outpatient (CLI) | payer MEDICARE, MEDICAID, SELFPAY ==
--- NOTE | ~2023-07-10 | DEXA_ITS ---
Bone Density Report Name: DELLA MANZO Age: 53 Sex: Female Ethnicity: White Date of : 1970 Indication: postmenopausal; screening for osteoporosis; height loss; asthma or emphysema; Referring Provider: SKYE MANUEL Study: Bone densitometry was performed. Exam Date: July 10, 2023 Accession number: [id number] Bone Density: Region BMD T-score Z-score Classification AP Spine(L1-L4) 1.036 -0.1 0.9 Normal Femoral Neck (Left) 0.849 0.0 1.0 Normal Total Hip (Left) 1.143 1.7 2.3 Normal Femoral Neck (Right) 0.843 -0.1 0.9 Normal Total Hip (Right) 1.106 1.3 2.0 Normal Total Hip Mean 1.125 1.5 2.2 Normal World Health Organization criteria for BMD impression classify patients as: Normal (T-score at or above -1.0), Osteopenia (T-score between -1.0 and -2.5), or Osteoporosis (T-score at or below -2.5). 10-year Fracture Risk: FRAX not reported because: All T-scores for Spine Total, Hip Total, Femoral Neck at or above -1.0 Clinical Information Provided by Patient: Smokes Has the following medical conditions: Asthma or Emphysema Patient maximum height was 62 Menopause Age: 38 No regular weight bearing exercise Drinks caffeinated beverages Onset of menses at age 11 Number of children 3 Impression: The patient has normal bone mass. The patient has risk factors, including: smoking. Discussion: BONE DENSITY IS ABOVE THE MINIMUM DESIRABLE LEVEL AT ALL SKELETAL SITES TESTED. This patient?s bone mineral density is above the minimum desirable level (T-score -1.0 or better) at all sites measured. The patient should follow a healthful lifestyle (good nutrition with adequate calcium and vitamin D, and appropriate weight-bearing exercise). Follow-Up: Consider repeating this study in 5 years or sooner if there is some new clinical indication. Reported by: TRACI on 07/10/2023 9:20:00 AM. Reviewed, dictated and finalized at location AMannie NANCE
--- NOTE | ~2023-07-10 | MM_ITS ---
EXAMINATION: MM screening chuckie BI w asha HISTORY: Screening mammogram TECHNIQUE: Craniocaudal and mediolateral oblique 3-D tomosynthesis images were obtained and synthetic 2-D images were generated. CAD analysis was submitted and interpreted. COMPARISON: 08/28/2018 bilateral screening mammogram BREAST PARENCHYMAL COMPOSITION: The breasts are almost entirely fatty. FINDINGS: There is no evidence of suspicious mass, calcification, or architectural distortion to sugg est malignancy in either breast. There has been no suspicious interval change. IMPRESSION: 1. No mammographic evidence of malignancy. 2. Recommend routine screening mammography in one year. BI-RADS Category 1: Negative Reviewed, dictated and finalized at location A.
== END 2023-07-10 08:50 | disposition home or self-care (01) ==
LOC: ANHIMG 08:50
PROVIDERS: PCP Internal Medicine; Visit Provider Clinical Nurse Specialist
DX: Z12.31 Encounter for screening mammogram for malignant neoplasm of breast (principal); Z78.0 Asymptomatic menopausal state
CPT/HCPCS: 77063; 77067; 77080

== ENCOUNTER 2023-09-16 12:06 | Outpatient (CLI) | payer MEDICARE, MEDICAID, SELFPAY ==
[2023-09-16 12:27] LABS: Hematocrit 41.3 % (37.0-47.0); Hemoglobin 13.1 g/dL (12.0-15.0); Mean Corpuscular HGB Conc 31.7 g/dl (32-36); Mean Corpuscular Hemoglobin 27.2 pg (26-34); Mean Corpuscular Volume 85.7 fl (80-100); Mean Platelet Volume 10.4 fl (7.4-10.4); Platelet Count Result 253 k/mm3 (150-375); Red Blood Count 4.82 M/mm3 (4.2-5.4); Red Cell Distribution Width 15.1 % (11.5-14.5); White Blood Count 9.1 K/mm3 (4.5-10.0)
[2023-09-16 13:23] LABS: Appearance Urine Clear (Clear); Bacteria Urine None Seen /hpf; Bilirubin Urine Negative (Negative); Blood Urine Trace (Negative); Color Urine Yellow (Yellow); Glucose Urine UA Negative (Negative); Ketones Urine Negative (Negative); Leukocyte Esterase Ur Negative LEU/UL (Negative); Nitrate Urine Negative (Negative); Non Pathogenic Casts 0-2; Protein Urine Negative (Negative); RBC Urine 0-2 /hpf (0-2); Specific Grav Ur 1.009 (1.001-1.035); Squamous Epithelial Cell Urine Few /hpf (Few); WBC Urine 0-5 /hpf; pH Urine 5.5 (5.0-9.0)
[2023-09-16 13:24] LABS: Alanine Aminotransferase 22 U/L (6-35); Albumin Level 4.1 g/dL (3.5-5.1); Alkaline Phosphatase 122 U/L (38-126); Anion Gap 8 mmol/L (8-16); Aspartate Amino Transferase 25 U/L (14-36); Bilirubin,Total 0.5 mg/dL (0.2-1.3); Blood Urea Nitrogen 12 mg/dL (7-17); CRP 1.4 mg/dL (<1.0); Calcium 9.3 mg/dL (8.4-10.2); Carbon Dioxide 29 mmol/L (22-30); Chloride 102 mmol/L (98-107); Estimated Glomerular Filt Rate > 60; Glucose 153 mg/dL (65-110); Potassium 4.2 mmol/L (3.4-5.0); Sodium 139 mmol/L (137-145)
[2023-09-16 13:28] LABS: Add Urine Microscopic? YES
== END 2023-09-16 12:07 | disposition home or self-care (01) ==
PROVIDERS: PCP Internal Medicine; Visit Provider Internal Medicine
DX: M15.9 Polyosteoarthritis, unspecified (principal); R06.02 Shortness of breath
CPT/HCPCS: 36415; 80053; 81001; 85027; 86140

== ENCOUNTER 2024-02-03 15:15 | Outpatient (CLI) | payer MEDICARE, MEDICAID, SELFPAY ==
[2024-02-03 15:35] LABS: Basophils Absolute Auto 0.1 K/mm3 (0.0-0.1); Basophils Percent Auto 0.8 % (0.2-1.2); Eosinophils Absolute Auto 0.3 K/mm3 (0-0.3); Eosinophils Percent Auto 2.6 % (0-4.4); Hematocrit 44.5 % (37.0-47.0); Hemoglobin 14.1 g/dL (12.0-15.0); Immature Granulocyte Absolute 0.05 K/mm3 (0.00-0.031); Immature Granulocyte Percent A 0.5 % (0-0.5); Lymphocytes Absolute Auto 3.09 K/mm3 (0.9-3.2); Lymphocytes Percent Auto 32.1 % (18.3-44.2); Mean Corpuscular HGB Conc 31.7 g/dl (32-36); Mean Corpuscular Hemoglobin 26.9 pg (26-34); Mean Corpuscular Volume 84.9 fl (80-100); Mean Platelet Volume 10.9 fl (7.4-10.4); Monocytes Absolute Auto 0.8 K/mm3 (0.1-0.6); Neutrophils Absolute Auto 5.4 K/mm3 (1.3-6.7); Platelet Count Result 299 k/mm3 (150-375); Red Blood Count 5.24 M/mm3 (4.2-5.4); White Blood Count 9.6 K/mm3 (4.5-10.0)
[2024-02-03 16:34] LABS: Alanine Aminotransferase 19 U/L (6-35); Albumin Level 4.6 g/dL (3.5-5.1); Alkaline Phosphatase 125 U/L (38-126); Anion Gap 6 mmol/L (4-12); Aspartate Amino Transferase 25 U/L (14-36); Bilirubin,Total 0.4 mg/dL (0.2-1.3); Blood Urea Nitrogen 15 mg/dL (7-17); Calcium 9.9 mg/dL (8.4-10.2); Carbon Dioxide 28 mmol/L (22-30); Chloride 107 mmol/L (98-107); Cholesterol 155 mg/dL (0-200); Estimated Glomerular Filt Rate > 60; Glucose 94 mg/dL (65-110); HDL Direct 47 mg/dL; Potassium 4.6 mmol/L (3.4-5.0); Sodium 141 mmol/L (137-145); Triglycerides 165 mg/dL (<150)
[2024-02-03 17:07] LABS: LDL Cholesterol Direct 68 mg/dL
[2024-02-03 17:22] LABS: MALB Creatinine Ratio < 33.3 mg/g (0-30); Microalbumin Urine Random < 6.0 mg/L (0-16.7)
== END 2024-02-03 15:16 | disposition home or self-care (01) ==
LOC: ANHLAB 15:17
PROVIDERS: Nurse Practitioner; PCP Internal Medicine; Visit Provider Internal Medicine Hematology & Oncology
DX: E55.9 Vitamin D deficiency, unspecified (principal); E11.9 Type 2 diabetes mellitus without complications
CPT/HCPCS: 36415; 80053; 80061; 82043; 82306; 83036; 85025

== ENCOUNTER 2024-09-03 08:36 | Outpatient (CLI) | payer MEDICARE, MEDICAID, SELFPAY ==
--- NOTE | ~2024-09-03 | MM_ITS ---
EXAMINATION: MM screening chuckie BI w asha HISTORY: Screening mammogram TECHNIQUE: Craniocaudal and mediolateral oblique 3-D tomosynthesis images were obtained and synthetic 2-D images were generated. CAD analysis was submitted and interpreted. COMPARISON: 07/10/2023, 08/28/2018 BREAST PARENCHYMAL COMPOSITION:Not Dense. The breasts are almost entirely fatty FINDINGS: No suspicious mass, calcification, or architectural distortion are identified in either oscar ast to suggest malignancy. There has been no suspicious interval change. IMPRESSION: No mammographic evidence of malignancy. Recommend routine screening mammography in one year. BI-RADS Category 1: Negative Reviewed, dictated and finalized at location . NT RELATIONSHIP MANAGER
== END 2024-09-03 08:37 | disposition home or self-care (01) ==
PROVIDERS: PCP Nurse Practitioner; Visit Provider Nurse Practitioner
DX: Z12.31 Encounter for screening mammogram for malignant neoplasm of breast (principal)
CPT/HCPCS: 77063; 77067

== ENCOUNTER 2025-01-04 10:07 | Outpatient (CLI) | payer MEDICARE, MEDICAID, SELFPAY ==
--- NOTE | ~2025-01-04 | CT_ITS ---
EXAMINATION:CT lung screening DATE: 01/04/2025 10:51 INDICATION: Nicotine dependence. Current smoker with 52.5 pack year history. TECHNIQUE: Computed tomography (CT) of the chest was performed without intravenous contrast. Automate d exposure control and iterative reconstruction technique were employed. The dose-length product (DLP ) was 325.53 mGy-cm. COMPARISON: Chest CT 12/20/2022 FINDINGS: There is widespread chronic peripheral septal thickening with groundglass opacities. No bro nchiectasis or honeycombing. No pleural effusion. The heart size is normal. No pericardial effusion. There is chronic mild mediastinal lymphadenopathy, likely reactive. There is severe cervical spondylo sis and moderate thoracic spondylosis. IMPRESSION: 1. Lung-RADS category 2: Benign appearance or behavior. Continue annual screening with noncontrast lo w-dose chest CT in 12 months. Reviewed, dictated and finalized at location A. IMPRESSION: 1. Lung-RADS category 2: Benign appearance or behavior. Continue annual screeni ng with noncontrast low-dose chest CT in 12 months.
[2025-01-04 11:26] LABS: Basophils Absolute Auto 0.1 K/mm3 (0.0-0.1); Eosinophils Absolute Auto 0.2 K/mm3 (0-0.3); Eosinophils Percent Auto 2.2 % (0-4.4); Hematocrit 46.8 % (37.0-47.0); Immature Granulocyte Absolute 0.05 K/mm3 (0.00-0.031); Immature Granulocyte Percent A 0.5 % (0-0.5); Lymphocytes Absolute Auto 2.73 K/mm3 (0.9-3.2); Lymphocytes Percent Auto 24.7 % (18.3-44.2); Mean Corpuscular HGB Conc 32.1 g/dl (32-36); Mean Corpuscular Hemoglobin 28.2 pg (26-34); Mean Platelet Volume 10.3 fl (7.4-10.4); Monocytes Absolute Auto 0.8 K/mm3 (0.1-0.6); Neutrophils Absolute Auto 7.2 K/mm3 (1.3-6.7); Neutrophils Percent Auto 64.6 % (45.5-73.1); Platelet Count Result 306 k/mm3 (150-375); Red Blood Count 5.32 M/mm3 (4.2-5.4); Red Cell Distribution Width 14.7 % (11.5-14.5); White Blood Count 11.1 K/mm3 (4.5-10.0)
[2025-01-04 11:31] LABS: Alanine Aminotransferase 15 U/L (6-35); Albumin Level 4.5 g/dL (3.5-5.1); Alkaline Phosphatase 141 U/L (38-126); Anion Gap 9 mmol/L (4-12); Aspartate Amino Transferase 25 U/L (14-36); Bilirubin,Total 0.3 mg/dL (0.2-1.3); Blood Urea Nitrogen 10 mg/dL (7-17); Calcium 9.8 mg/dL (8.4-10.2); Carbon Dioxide 24 mmol/L (22-30); Chloride 105 mmol/L (98-107); Cholesterol 150 mg/dL (0-200); Estimated Glomerular Filt Rate > 60; Glucose 97 mg/dL (65-110); HDL Direct 61 mg/dL; Potassium 4.3 mmol/L (3.4-5.0); Sodium 138 mmol/L (137-145); Triglycerides 110 mg/dL (<150)
[2025-01-04 11:41] LABS: Hemoglobin A1C 5.3 % (<5.7)
[2025-01-04 11:42] LABS: LDL Cholesterol Direct 47 mg/dL
[2025-01-04 11:51] LABS: Vitamin D 25 Hydroxy 35.1 ng/mL
[2025-01-04 12:20] LABS: Creatinine Urine 76.3 mg/dL
[2025-01-04 12:25] LABS: MALB Creatinine Ratio 67.9 mg/g (0-30); Microalbumin Urine Random 51.8 mg/L (0-16.7)
== END 2025-01-04 10:08 | disposition home or self-care (01) ==
PROVIDERS: PCP Internal Medicine; Referring Provider Nurse Practitioner
DX: E11.9 Type 2 diabetes mellitus without complications (principal); E55.9 Vitamin D deficiency, unspecified; E66.01 Morbid (severe) obesity due to excess calories; M25.50 Pain in unspecified joint; Z12.2 Encounter for screening for malignant neoplasm of respiratory organs; Z87.891 Personal history of nicotine dependence
CPT/HCPCS: 36415; 71271; 80053; 80061; 82043; 82306; 83036; 84443; 85025

== ENCOUNTER 2025-06-03 11:44 | Outpatient (CLI) | payer MEDICARE, MEDICAID, SELFPAY ==
[2025-06-03 12:00] LABS: Hematocrit 41.6 % (37.0-47.0); Hemoglobin 13.7 g/dL (12.0-15.0); Immature Granulocyte Percent A 0.3 % (0-0.5); Lymphocytes Absolute Auto 2.43 K/mm3 (0.9-3.2); Mean Corpuscular HGB Conc 32.9 g/dl (32-36); Mean Corpuscular Hemoglobin 28.4 pg (26-34); Mean Corpuscular Volume 86.3 fl (80-100); Nucleated Red Blood Cells Absolute Auto 0.000 K/mm3 (0.0-0.012); Nucleated Red Blood Cells Perc 0.0 % (0.0-0.2); Platelet Count Result 262 k/mm3 (150-375); Red Blood Count 4.82 M/mm3 (4.2-5.4); White Blood Count 8.6 K/mm3 (4.5-10.0)
--- OUTSIDE RECORDS SUMMARY | 2025-06-03 12:14 | XMS_ITS | Clinical Summary ---
Author Organization [facility] Address [address] [place] [address] Care Team Providers Care Fish And Wildlife Warden Name Role Phone Kamaljit Steven DO Primary Care Provider Kamaljit Steven DO Unavailable [phone] Rossy Toribio MD Unavailable Lindy Villafana APRN-PRODUCT SAFETY TEST ENGINEER Unavailable [phone] Source Comments [facility],non-owned Affiliates and Associated Physician Practices is amultiple site organization consisting of ambulatory clinics and hospital sitesin [place] and [place]. This disclosure is being madepursuant to the Care Everywhere program and may not contain all information available regarding this patient. Last updated 18.[facility] [employer] Allergies No known active allergies Medications * Be aware that medications may not be up to date on this document. Alwaysverify current medications with the patient. amitriptyline (ELAVIL) 100 MG tablet Take 2 (two) tablets by mouth at bedtime Active lovastatin (MEVACOR) 40 MG tablet Take 1 (one) tablet by mouth at bedtime Active famotidine (PEPCID) 40 MG tablet Take 1 (one) tablet by mouth 2 times daily Active montelukast (SINGULAIR) 10 MG tablet Take 1 (one) tablet by mouth once daily 3 04/12/20 17 Active Blood Glucose Monitoring Suppl (ONE TOUCH ULTRA MINI) W/DEVICE KIT U TO CHECK FBG ONCE A DAY 0 10/23/19 18 Active ONETOUCH ULTRA TEST STRIPS test strip U ONCE A DAY UTD 3 11/05/19 18 Active buPROPion XL 24hr (WELLBUTRIN-XL) 300 MG tablet Take 1 (one) tablet by mouth every morning 12/03/19 19 Active hydroxychloroquin e (PLAQUENIL) 200 MG tablet Take 2 (two) tablets by mouth once daily Active Calcium Polycarbophil (FIBER) 625 MG Take by mouth 2 times daily Active bisacodyl EC (DULCOLAX) 5 MG tablet Take 1 (one) tablet by mouth once as needed for Constipation Active albuterol (PROVENTIL;VENTOL IN) (2.5 MG/3ML) 0.083% nebulizer solutionIndicatio ns:Mild persistent asthma without complication (HCC) Inhale 2.5 (two and one-half) mg by mouth 3 times daily as needed for Shortness of Breath 360 mL 1 10/11/20 21 Active Linzess 290 MCG capsule Take 1 (one) capsule by mouth once daily 05/08/20 22 Active benzonatate (Tessalon) 200 MG capsule Take 1 (one) capsule by mouth 3 times daily as needed for Cough 30 capsule 05/10/20 23 Active albuterol HFA (Proventil; Ventolin; Proair) 108 (90 Base) MCG/ACT inhaler INHALE 2 PUFFS BY MOUTH EVERY 6 HOURS NEEDED FOR SHORTNESS OF BREATH OR WHEEZING OR COUGH 54 g 04/20/20 24 Active Ozempic, 1 MG/DOSE, 4 MG/3ML pen Inject 1 (one) mg subcutaneously every 7 days (Total dose 3 mg) 11/05/19 25 Active aspirin EC (Ecotrin) 81 MG tablet Take 1 (one) tablet by mouth once daily Active Semaglutide (2 MG/DOSE) 8 MG/3ML Subcutaneous Solution Pen-injector (Ozempic (2 MG/DOSE)) Inject 2 (two) mg subcutaneously every 7 days (Total dose 3 mg) Active Fluticasone-Umecl idin-Vilant (Trelegy Ellipta) 100-62.5-25 MCG/ACT INHALE 1 PUFF BY MOUTH EVERY DAY 180 Each 3 04/21/20 25 Active Active Problems Problem Noted Date Diagnosed Date Anxiety disorder 10/11/2021 Chronic obstructive pulmonary disease 10/11/2021 Body mass index (BMI) 23.0-23.9, adult 0 Encounter for test, result unknown Lupus anticoagulant disorder 08/19/2019 Tobacco abuse 08/19/2019 Diabetes mellitus 10/28/2017 Sleep apnea, unspecified 04/29/2017 HTN (hypertension) 07/28/2015 Morbid obesity 07/28/2015 Depression 07/28/2015 GERD (gastroesophageal reflux disease) 5 Hypercholesteremia 07/28/2015 Carpal tunnel syndrome 07/28/2015 Osteoarthritis 07/28/2015 Fatty liver 07/28/2015 Chest pain, unspecified 06/23/2013 Encounters Date Type Department Care Team Description 04/20/2025 Refill [facility] - Pulmonology [address] [place] [address] Rossy Toribio MD Refill Request from Last 3 Months Immunizations Immunization Administration Dates Next Due [employer] primary monoval ent 12+ yr 0.3mL Purple cap 04/27/2021,04/04/2021 INFLUENZA VACCINE, QUADR. (F LUZONE; FLULAVAL; FLUARIX; AFLURIA QUADRIVALENT; 6MO+), 0.5 ML (IIV4) 08/11/2020,09/11/2019 Social History Tobacco Use Types Packs/Day Years Used Date Smoking Tobacco: Every Day Cigarettes 1.5 35 Smokeless Tobacco: Never Tobacco Cessation:Ready to Q uit: Not Asked; Counseling Given: Not Answered Comments:Smoking about 5 cigs per day 11/17/2024 GD Alcohol Use Standard Drinks/Week Comments No 0 (1 standard drink = 0.6 oz pur e alcohol) PHQ-2 Answer Date Recorded Patient Health Questionnaire-2 Score 1 11/17/2024 Comments No Sex and Gender Information Value Date Recorded Sex Assigned at Not on file Legal Sex Female 9:37 AM CDT Gender Identity Not on file Sexual Orientation Not on file Last Filed Vital Signs Vital Sign Reading Time Taken Comments Blood Pressure 104/60 11/17/2024 2:43 PM GRAPHIC ARTS INSTRUCTOR Pulse 79 11/17/2024 2:43 PM GRAPHIC ARTS INSTRUCTOR Temperature 36.2 C (97.2 F) 11/17/2024 2:43 PM GRAPHIC ARTS INSTRUCTOR Respiratory Rate 16 11/17/2024 2:43 PM GRAPHIC ARTS INSTRUCTOR Oxygen Saturation 97% 11/17/2024 2:43 PM GRAPHIC ARTS INSTRUCTOR Room air Inhaled Oxygen Concentration - - Weight 101.2 kg (223 lb) 11/17/2024 2:43 PM GRAPHIC ARTS INSTRUCTOR Height 152.4 cm (5') 11/17/2024 2:43 PM GRAPHIC ARTS INSTRUCTOR Body Mass Index 43.55 11/17/2024 2:43 PM GRAPHIC ARTS INSTRUCTOR Plan of Treatment Upcoming Encounters Date Type Department Care Team (Late st Contact Info) Description 11/16/2025 2:00 PM GRAPHIC ARTS INSTRUCTOR Appointment Counts include 234 beds at the [facility] Pulmonology [address] [place], [place] [id number] 11/16/2025 2:30 PM GRAPHIC ARTS INSTRUCTOR Office Visit [facility] Pulmonology [address] [place] [address] [place] [address] [facility] [address] [place] [address] Health Maintenance Due Date Last Done Comments COLOGUARD (AGES 45-75) - COL ON CA SCREENING 1969 COLON MONITORING 1969 COLONOSCOPY - COLON CA SCREENING 1969 CT COLONOGRAPHY - COLON CA SCREENING 1969 Colorectal Cancer Screening 1969 FIT - COLON CA SCREENING 1969 FLEX SIG - COLON CA SCREENING 1969 MAMMOGRAM 1969 HIV SCREENING 1984 HEPATITIS C SCREENING 05/29/1987 DTAP/TDAP/TD VACCINES (1 - Tdap) 1988 HEPATITIS B VACCINE (1 of 3 - 19+ 3-dose series) 1988 PNEUMOCOCCAL VACCINE 50+ (1 of 2 - PCV) 1988 PAP SMEAR 1990 LUNG CANCER SCREENING 2019 ZOSTER VACCINE (1 of 2) 2019 DIABETES-SERUM CREATININE 03/19/2020 03/19/2019 DIABETES RETINOPATHY SCREENING 03/10/2021 DIABETES-FOOT EXAM WITH MONOFILAMENT 03/10/2021 DIABETES-HGB A1C 03/10/2021 COVID-19 VACCINE (3 - 2023-2 5 season) 2024 04/27/2021, 04/04/2021 DIABETES - URINE PROTEIN SCREENING 10/14/2024 MEDICARE AWV CALENDAR YEAR 2024 INFLUENZA VACCINE (#1) 2025 0, 09/11/2019 DEPRESSION SCREENING Completed 11/17/2024 HIB VACCINE Aged Out No longer eligi ble based on patient's age to complete this topic HPV VACCINE Aged Out No longer eligi ble based on patient's age to complete this topic MENINGOCOCCAL (Group B) VACCINE SHARED DECISION-MAKING Aged Out No longer eligible based on patient's age to complete this topic MENINGOCOCCAL GROUPS A/C/Y/W VACCINE Aged Out No longer eligible b ased on patient's age to complete this topic Medical Devices Implanted Type Area Real Estate Professional Device Identifier Shelf Expiration Date Model / Serial / Lot Hydroset X 5cc Implanted:Qty: 1 on 03/19/2019 by Juaquin Friend DPM at [facility] Left: Foot [employer] 02/23/2020 [id number] / / [id number] Screw 3mm 18mm Ezekiel Rvrs Cut Flut Ft Hand Implanted:Qty: 1 on 03/19/2019 by Juaquin Friend DPM at [facility] Left: Foot [employer] [id number] / / Description:ALL AVAILABLE IN FORMATION PROVIDED BY VENDOR IS ENTERED Screw 2.4mm 12mm T8 Ft Lck Variax Implanted:Qty: 3 on 03/19/2019 by Juaquin Friend DPM at [facility] Left: Foot [employer] [id number] / / Description:ALL AVAILABLE IN FORMATION PROVIDED BY VENDOR IS ENTERED Screw Munir T8 Full Thrd 2.4mm L10mm Implanted:Qty: 2 on 03/19/2019 by Juaquin Friend DPM at [facility] Left: Foot [employer] [id number] / / Description:ALL AVAILABLE IN FORMATION PROVIDED BY VENDOR IS ENTERED Slim Straight Fx Plate Implanted:Qty: 1 on 03/19/2019 by Juaquin Friend DPM at [facility] Left: Foot [employer] [id number] / / Description:ALL AVAILABLE IN FORMATION PROVIDED BY VENDOR IS ENTERED Procedures Procedure Name Priority Date/Time Associated Diagnosis Comments BASIC METABOLIC PANEL (CALCIUM TOTAL) STAT 03/19/2019 11:40 AM CDT Preop examination from Last 3 Months or Most Recently Relevant to Health Maintenance Results * (ABNORMAL) BASIC METABOLIC PANEL (CALCIUM TOTAL) (03/19/2019 11:40 AM CDT) Glucose 109(H) 74 - 106 mg/dL 03/19/2019 12:41 PM CDT [facility] Sodium 139 136 - 145 mmol/L 03/19/2019 12:41 PM CDT [facility] Potassium 4.1 3.5 - 5.1 mmol/L 03/19/2019 12:41 PM CDT [facility] Chloride 104 98 - 107 mmol/L 03/19/2019 12:41 PM CDT [facility] CO2 25 23 - 31 mmol/L 03/19/2019 12:41 PM CDT [facility] Calcium 9.6 8.4 - 10.2 mg/dL 03/19/2019 12:41 PM CDT [facility] Anion Gap 10 8 - 16 mmol/L 03/19/2019 12:41 PM CDT [facility] BUN 13 7 - 18.7 mg/dL 03/19/2019 12:41 PM CDT [facility] Creatinine 0.70 0.55 - 1.02 mg/dL 03/19/2019 12:41 PM CDT [facility] eGFR by MDRD >60 >60 mL/min/1.7 3m2 03/19/2019 12:41 PM CDT [facility] eGFR by MDRD >60 >60 mL/min/1.7 3m2 03/19/2019 12:41 PM CDT [facility] Blood BLOOD SPECIMEN / Unknown Venipuncture / Unknown 03/19/2019 11:40 AM CDT 03/19/2019 12:20 PM CDT Narrative [facility] - 03/19/2019 12:41 PM CDT Attention clinician: BUN Reference Range has changed. us Marina White DO LAB - CHEMISTRY ORDERABLES Citlali dowd Result [facility] [address] [place] [id number] from Last 3 Months or Most Recently Relevant to Health Maintenance Insurance [facility] [place] Care Teams Fish And Wildlife Warden Relationship Specialty Start Date End Date Kamaljit Steven DO PCP - General Internal Medicine 04/28/17 Kamaljit Steven DO Internal Medicine 04/28/17 [place] [address] [address] Pulmonary Disease 09/26/15 Lindy Villfaana APRN-JESENIA [address] [address] Nurse Practitioner 03/10/21
--- OUTSIDE RECORDS SUMMARY | 2025-06-03 12:14 | XMS_ITS ---
Author Name ELAINE FERNANDEZ Address [address] [place] [address] Phone [facility] Address [address] [place] [address] Phone Care Team Providers Care Director Of Academic Support Name Role Phone ELAINE FERNANDEZ Unavailable ALLERGIES, ADVERSE REACTIONS AND ALERTS Allergy Name Allergy Date Allergy Status Allergy Severity Allergy Reaction NO KNOWN DRUG ALLERGIES MEDICATIONS RxNorm Brand Name Prescription Ordered Value Order Unit Start Date Date Status Fill Status Indications [id number] amoxicill in 875 mg tablet SIG: amoxicillin 875 mg oral tablet, 7 days, Dispense #14 Tablet, 0 RefillsDirect ions: Take 1 tablet PO BID x 7 days. 14 tablet 2021 Current [id number] benzonata te 100 mg capsule SIG: benzonatate 100 mg oral capsule, 7 days, Dispense #21 Capsule, 0 RefillsDirect ions: Take 1 capsule every 8 hours as needed for cough x7 days. 21 capsule 2021 Current PROBLEMS Problem Code Problem Description Problem Status Problem Da te Problem End Date [id number]-Iedsvvsda esterolemia Hypercholesterolemia Current 06/22/2022 [id number]-Gwxfhypce gretchen disorder Hypertensive disorder Current 06/22/2022 [id number]-Byivbu tunnel syndrome Carpal tunnel syndrome Current 06/22/2022 [id number]-Jmmulokz section section Current 06/22/2022 [id number]-[id number] ctomy Tonsillectomy Current 06/22/2022 PROCEDURES Procedure Description Date Notes NO PROCEDURES PERFORMED ASSESSMENTS Assessment None PLAN OF TREATMENT Assessment Planned Activity LOINC Planned Lino e None CONSULTATION NOTE Note Author Date None HISTORY AND PHYSICAL NOTE Note Author Date None PROGRESS NOTE Note Author Date None DISCHARGE SUMMARY Note Author Date None CHIEF COMPLAINT AND REASON FOR VISIT FUNCTIONAL STATUS Functional or Cognitive Find ing None MENTAL STATUS Cognitive Finding None ENCOUNTERS Encounter Type Provider Diagnoses Start Date Location Disc harged to None SOCIAL HISTORY Social Status Observation Current Every Day Smoker Sex: Female CARE TEAM INFORMATION Director Of Academic Support Provider ID Role Location Phone ELAINE FERNANDEZ [phone] [address] [facility], [place] [address] INSURANCE PROVIDERS Payer Name Policy type / Coverage type Covered democrat ID Policy [facility] PLANS Private Health Insurance [id number] SELF [place] MEDICAID Medicaid [id number] SELF
--- OUTSIDE RECORDS SUMMARY | 2025-06-03 12:14 | XMS_ITS | Encounter Summary ---
Author Organization [facility] Health Address [address] [place] [address] Care Team Providers Care Center Human Resources Manager Name Role Phone Kamaljit Steven DO Primary Care Provider [phone] Kamaljit Steven DO Unavailable [phone] Rossy Toribio MD Unavailable [phone] Lindy Villafana Unavailable Encounter Details Date Type Department Care Team (Late Contact Info) Description 01/31/2018 [facility] Outpatient Visit [facility] [address] [place] [address] Lindy Villafana APRN-CNP [address] [place] [address] Social History Tobacco Use Types Packs/Day Years Used Date Smoking Tobacco: Every Day Cigarettes 1.5 35 Started: 09/12/1980; Last attempted to quit: 09/12/2015 Smokeless Tobacco: Never Comments:Smoking again, abou t 5 cigs per day Alcohol Use Standard Drinks/Week Comments Not Asked 0 (1 standard drink = 0.6 oz pur e alcohol) Comments Unknown Sex and Gender Information Value Date Recorded Sex Assigned at Not on file Legal Sex Female 9:37 AM CDT Gender Identity Not on file Sexual Orientation Not on file documented as of this encounter Plan of Treatment Upcoming Encounters Date Type Department Care Team (Late Contact Info) Description 11/16/2025 2:00 PM PIECER UP Appointment [facility] Pulmonology [address] [place] [address] 11/16/2025 2:30 PM [facility]ER UP Office Visit [facility] - Pulmonology [address] [address] [place]y Tor[place] [id number] [place] [address] documented as of this encounter Visit Diagnoses Not on filedocumented in this encounter Care Teams Center Human Resources Manager Relationship Specialty Start Date End Date Kamaljit Steven DO PCP - General Internal Medicine 04/28/17 Kamaljit Steven DO Internal Medicine 04/28/17 [place] [id number] [place] [address] Pulmonary Disease 09/26/15 Lindy Villafana APRN-JESENIA [id number] [place] [address] Nurse Practitioner 03/10/21 documented as of this encounter
[2025-06-03 16:46] LABS: Alanine Aminotransferase 16 U/L (6-35); Albumin Level 4.1 g/dL (3.5-5.1); Alkaline Phosphatase 107 U/L (38-126); Anion Gap 7 mmol/L (4-12); Aspartate Amino Transferase 36 U/L (14-36); Bilirubin,Total 0.3 mg/dL (0.2-1.3); Blood Urea Nitrogen 10 mg/dL (7-17); Calcium 9.5 mg/dL (8.4-10.2); Carbon Dioxide 25 mmol/L (22-30); Chloride 106 mmol/L (98-107); Estimated Glomerular Filt Rate > 60; Glucose 83 mg/dL (65-110); Potassium 4.1 mmol/L (3.4-5.0); Sodium 138 mmol/L (137-145); Total Protein 7.3 g/dL (6.3-8.2)
[2025-06-03 17:44] LABS: Hemoglobin A1C 5.5 % (<5.7)
== END 2025-06-03 11:45 | disposition home or self-care (01) ==
PROVIDERS: PCP Internal Medicine; Visit Provider Nurse Practitioner
DX: D72.829 Elevated white blood cell count, unspecified (principal); E11.9 Type 2 diabetes mellitus without complications
CPT/HCPCS: 36415; 80053; 83036; 85025